=== PATIENT | male | born 1960 | race Caucasian/White ===

== ENCOUNTER 2016-11-15 08:20 | Emergency (ER) | payer BC ==
[2016-11-15 08:44] VITALS: RESP 16; TEMP 97.6
[2016-11-15] MEDS ORDERED: HYDROcodone-APAP 5 MG -325 MG TABLET PO ONE (09:18)
--- NOTE | 2016-11-15 09:18 | DI ---
HISTORY: First metacarpal pain for 3-4 weeks. No reported trauma. COMPARISON: None available. FINDINGS: There is mild irregularity at the distal aspect of the middle phalanx. Undisplaced fractu res not excluded. There is degenerative change compatible with some degree of osteoarthrosis. There is mild irregularity with subluxation at the first carpometacarpal joint most likely from under lying osteoarthrosis. IMPRESSION: 1. There is mild irregularity at the distal aspect of the middle phalanx. Undisplaced fractures not e xcluded. Recommend MRI for correlation with edema. 2. There is degenerative change compatible with some degree of osteoarthrosis. 3. Mild irregularity with subluxation at the first carpometacarpal joint most likely from underlying osteoarthrosis. Recommend correlation with point tenderness.
--- NOTE | 2016-11-15 09:28 | PDOC ---
Hand / Wrist Injury HPI - General Chief Complaint: Upper Extremity Problem/Injury Stated Complaint: left thumb pain Date Seen by Provider: 11/15/16 Time Seen by Provider: 09:10 Source: POSITIVE: Patient, Spouse Exam Limitations: POSITIVE: No limitations Nurse's Notes Reviewed & Considered: Yes - History of Present Illness Initial Comments: Patient injured thumb about 4 weeks ago while working on truck and tarping load. Patient has had pain in left thumb since this time. Taking one dose ibuprofen for day without relief of pain. Rates pain 01/28. Denies numbness. Denies lacerations. Denies CP/SOB. Right hand dominate Have you received a tetanus shot in the past 10 years?: Yes Body Location Affected: REPORTS: Upper Extremity (L) (left thumb) Timing: REPORTS: Gradual Duration: >1 week Severity: Moderate Location of Injury: REPORTS: Left, 1st Finger Quality: REPORTS: Aching, Stabbing, Throbbing Modifying Factors: REPORTS: Movement Any Prior Injuries Related to Current Complaint?: No - Patient Home Medications Home Medications: Home Medications Aspirin 81 mg ORAL QD tab 09/15/11 Niacin [Slo-Niacin] 2 tab PO BID #360 tab 11/15/15 Hydrocortisone Acetate [Anusol-Hc] 1 applic RC BID #1 tube 03/07/16 Indomethacin 50 mg PO DAILY 03/07/16 Allopurinol 1 tab ORAL QD #90 tab 08/14/16 Atorvastatin Calcium [Lipitor] 1 tab PO QD #90 tab 08/14/16 Lisinopril/Hydrochlorothiazide [Lisinopril-Hctz 20-12.5 Mg Tab] 1 tab PO BID # 180 tab 08/14/16 Pantoprazole Sodium [Protonix] 1 tab PO QD #90 tab 08/14/16 - Patient Allergies Allergies/Adverse Reactions: Allergies Allergy/AdvReac Type Severity Reaction Status Date / Time No Known Allergies Allergy Verified 11/15/16 08:34 Past Medical History - heen HEENT History: Denies History Cardiovascular History: Hypertension, Previous OK, CAD Respiratory History: Denies History Gastrointestinal History: GERD Additional Gastrointestinal History: BLOOD IN STOOL Genitourinary History: Denies History Endocrine History: Denies History Musculoskeletal History: Denies History Prosthesis or Implant: No Additional Musculoskeletal History: SECOND DEGREE BARRON OVER MULTIPLE AREAS 2013 Neurological History: Denies History Blood Disorders: Denies History Psychiatric History: Denies History History of Sexually Transmitted Diseases: No Cancer History: Denies History In Past Year Been Physically Harmed or Verbally Threatened: No History of MDRO: No History of Other Communicable Diseases: No Tobacco Use: Never Smoker Alcohol Use: None Substance Use Type: None Previous Surgical History: Yes Type / Date of Surgery: BACK SX/BILATERAL KNEE SCOPES/R RCR/R WRIST SX/ Anesthesia Reactions: No Malignant Hyperthermia: No ROS - Limitations ROS Limitations: No Limitations Constitution: REPORTS: Denies Symptoms Cardiovascular: REPORTS: Denies Cardiac Symptoms Respiratory: REPORTS: Denies Resp Symptoms Neurological: REPORTS: Denies Neuro Symptoms Gastrointestinal: REPORTS: Denies GI Symptoms Endocrine: REPORTS: Denies Symptoms Musculoskeletal: REPORTS: Other (left thumb and hand pain.) Genitourinary: REPORTS: Denies Symptoms Eyes: REPORTS: Denies Symptoms ENT: REPORTS: Denies Symptoms Skin: REPORTS: Denies Skin Symptoms Lympathic: REPORTS: Denies Lympathic Symptoms Psychiatric: POSITIVE: Denies Psych Symptoms Hand / Wrist Injury Exam - General Appearance General Appearance: POSITIVE: Alert, Cooperative, Mild Distress - Extremities Upper Extremity: POSITIVE: Bony Tenderness, Limited ROM d/t Pain, Snuff Box Position Tender, Axial Thumb Load Pain Neurovascular / Tendon: POSITIVE: Sensation Normal, No Vascular Compromise Skin: POSITIVE: Warm, Dry - HEENT HEENT: POSITIVE: Head Inspection Nml, Eyes Inspection Nml, Ears Inspection Nml, Nose Inspection Nml, PERRL, EOMI - Neck / Back Neck/Back: POSITIVE: Normal Inspection - Respiratory / CVS Respiratory / CVS: POSITIVE: Chest Non Tender, Breath Sounds Normal, No Respiratory Distress, Heart Sounds Normal, Regular Rate/Rhythm - Abdomen Abdomen: Soft: (All Quadrants), Normal Bowel Sounds: (All Quadrants), Denies Tenderness: (All Quadrants), No Guarding: (All Quadrants), No Rebound: (All Quadrants), No Palpable Pulse: (All Quadrants), No Palpabale Mass: (All Quadrants), No Distention: (All Quadrants), No Rigidity: (All Quadrants) Images - Uploaded Photos Uploaded Photos: left hand xray reviewed. Possible fracture at base of 1st metatarsal. Correlates with pain. Hand / Wrist Injury Progress - Results Reviewed by me Xrays/CTs/US Reviewed by me: Yes Radiology Findings: mild irregularity of distal aspect of middle phalanx. undisplaced fracture not excluded. - Patient's Progress Pain Medication Addressed: POSITIVE: Yes (given norco in ED with some relief of pain) Patient Care Time - Estimated PCT Patient Care Time (In Minutes): 15 Vital Signs - Recent Vital Signs Vital Signs: Vital Signs (Last 8 hours) Temp Pulse Resp BP Pulse Ox 11/15/16 08:36 97.6 F 68 16 126/83 94 Discharge Clinical Impression: Thumb fracture, Pain of left thumb Condition: Stable Follow Up With: DANA CHAUDHARI [Primary Care Provider] -
== END 2016-11-15 10:02 | disposition home or self-care (01) ==
LOC: ER 08:20
DX: S62.522A Displaced fracture of distal phalanx of left thumb, initial encounter for closed fracture (principal); W23.1XXA Caught, crushed, jammed, or pinched between stationary objects, initial encounter
CPT/HCPCS: 73140; 99282; 99283